=== PATIENT | female | born 1970 | race Caucasian/White ===

== ENCOUNTER 2016-08-07 19:04 | Observation (INO) | payer SELFPAY ==
[~2016-08-07] VITALS: Ht 177.8 cm; Wt 88.4 kg
[~2016-08-07 19:04] MED LIST: ONDA1TAB16 PO; SUMA25 PO; TRAM50 PO; VENTAER INH
[2016-08-07 19:05] VITALS: BP 126/77; PULSE 68; RESP 16; TEMP 98.2; O2SAT 98
--- NOTE | 2016-08-07 19:37 | PD ---
HPI Chief Complaint: Chest Pain Time Seen by Provider: 19:34 Travel History International Travel<30 days: No Contact w/Intl Traveler<30days: No Traveled to known affect area: No History of Present Illness HPI The patient is a 45-year-old female that complains of a squeezing type chest pain around the left lower breast for 3 days. The pain is constant and never completely goes away. She has some slight nausea but denies any diaphoresis or radiation of pain. She does have some shortness of breath. She states she has been under a lot of stress lately. She has never had a stress test. PFSH Past Medical History Hx Anticoagulant Therapy: No Asthma: Yes Cerebrovascular Accident: Yes (TIA) Migraines: Yes ?: Not Tubal Ligation: Yes Past Surgical History Hysterectomy: Yes Tonsillectomy: Yes Social History Alcohol Use: Yes (SOCIAL) Tobacco Use: No Substance Use: No Allergies-Medications (Allergen,Severity, Reaction): Coded Allergies: Morphine (Verified Allergy, Severe, Hives, 08/07/16) Penicillin (Verified Allergy, Severe, Hives, 08/07/16) Reported Meds & Prescriptions Reported Meds & Active Scripts Active Review of Systems Except as stated in HPI: all other systems reviewed are Neg Physical Exam Narrative GENERAL: The patient is alert, oriented 3 in slight apparent distress with her chest pain. Her vital signs are normal. SKIN: Focused skin assessment warm/dry. HEAD: Atraumatic. Normocephalic. EYES: Pupils equal and round. No scleral icterus. No injection or drainage. ENT: No nasal bleeding or discharge. Mucous membranes pink and moist. NECK: Trachea midline. No JVD. CARDIOVASCULAR: Regular rate and rhythm. No murmur appreciated. I can reproduce the patient's chest pain by pressing on the left lower ribs at one small area. RESPIRATORY: No accessory muscle use. Clear to auscultation. Breath sounds equal bilaterally. GASTROINTESTINAL: Abdomen soft, non-tender, nondistended. Hepatic and splenic margins not palpable. No guarding or rebound is present. MUSCULOSKELETAL: No obvious deformities. No clubbing. No cyanosis. No edema. NEUROLOGICAL: Awake and alert. No obvious cranial nerve deficits. Motor grossly within normal limits. Normal speech. PSYCHIATRIC: Appropriate mood and affect except that she does appear somewhat anxious; insight and judgment normal. Data Data Last Documented VS Vital Signs Date Time Temp Pulse Resp B/P Pulse Ox O2 Delivery O2 Flow Rate FiO2 08/07/16 19:52 70 16 129/82 99 Room Air 08/07/16 19:05 98.2 Orders Chest, Pa & Lat (08/07/16 19:37) Complete Blood Count With Diff (08/07/16 19:45) Comprehensive Metabolic Panel (08/07/16 19:45) Troponin I (08/07/16 19:45) Labs Laboratory Tests Test 08/07/16 19:10 White Blood Count 6.6 TH/MM3 Red Blood Count 5.03 MIL/MM3 Hemoglobin 13.8 GM/DL Hematocrit 39.6 % Mean Corpuscular Volume 78.7 FL Mean Corpuscular Hemoglobin 27.4 PG Mean Corpuscular Hemoglobin 34.8 % Concent Red Cell Distribution Width 12.5 % Platelet Count 180 TH/MM3 Mean Platelet Volume 8.5 FL Neutrophils (%) (Auto) 61.6 % Lymphocytes (%) (Auto) 31.2 % Monocytes (%) (Auto) 5.5 % Eosinophils (%) (Auto) 0.1 % Basophils (%) (Auto) 1.6 % Neutrophils # (Auto) 4.0 TH/MM3 Lymphocytes # (Auto) 2.1 TH/MM3 Monocytes # (Auto) 0.4 TH/MM3 Eosinophils # (Auto) 0.0 TH/MM3 Basophils # (Auto) 0.1 TH/MM3 CBC Comment DIFF FINAL Differential Comment Sodium Level 143 MEQ/L Potassium Level 3.7 MEQ/L Chloride Level 107 MEQ/L Carbon Dioxide Level 27.4 MEQ/L Anion Gap 9 MEQ/L Blood Urea Nitrogen 15 MG/DL Creatinine 1.00 MG/DL Estimat Glomerular Filtration 59 ML/MIN Rate Random Glucose 130 MG/DL Calcium Level 9.1 MG/DL Total Bilirubin 0.4 MG/DL Aspartate Amino Transf 20 U/L (AST/SGOT) Alanine Aminotransferase 24 U/L (ALT/SGPT) Alkaline Phosphatase 76 U/L Troponin I LESS THAN 0.02 NG/ML Total Protein 7.2 GM/DL Albumin 3.9 GM/DL MDM Medical Decision Making Medical Screen Exam Complete: Yes Emergency Medical Condition: Yes Medical Record Reviewed: Yes Interpretation(s) The CBC is normal. The complete metabolic profile shows a GFR 59, glucose of 1: 30 and troponin I but is otherwise normal. The troponin I is normal. The EKG shows Q waves in II, III, and F aVF consistent with an previous inferior myocardial infarction but is otherwise normal. It has a normal sinus rhythm with a rate of 66. Differential Diagnosis Chest wall pain, esophageal pain, gastrointestinal pain, acute coronary syndrome , pleuritic pain Narrative Course The patient has chest pain etiology undetermined. She has agreed to go into the chest pain center here at [place]. Physician Communication Physician Communication I discussed the patient with Dr. Richardson. Diagnosis Primary Impression: Chest pain of unknown etiology Admitting Information Admitting Physician Requests: Observation Foreign Austin MD Aug 07, 2016 19:37
[2016-08-07 19:52] VITALS: BP 129/82; PULSE 70; RESP 16; O2SAT 99
--- NOTE | 2016-08-07 19:58 | RADHPO ---
EXAM DATE/TIME: 08/07/2016 19:40 [facility] COMPARISON: No previous studies available for comparison. INDICATIONS : Left side chest pain for three days. MEDICAL HISTORY : None. SURGICAL HISTORY : None. ENCOUNTER: Initial ACUITY: 3 days PAIN SCORE: 8/10 LOCATION: Left chest FINDINGS: PA and lateral views of the chest demonstrate the lungs to be symmetrically aerated without evidence of mass, infiltrate or effusion. The cardiomediastinal contours are unremarkable. Osseous structure s are intact. CONCLUSION: No evidence of acute cardiopulmonary disease. Jaciel Justice MD on August 07, 2016 at 19:55 Board Certified Radiologist. This report was verified electronically.
[2016-08-07 20:00] LABS: BASOPHIL # 0.1 TH/MM3 (0-0.2); BASOPHIL % 1.6 % (0.0-2.0); EOSINOPHIL % 0.1 % (0.0-4.0); HEMATOCRIT 39.6 % (35.0-46.0); HEMO FLAGS DIFF FINAL; LYMPH % 31.2 % (9.0-44.0); LYMPHOCYTE # 2.1 TH/MM3 (1.0-4.8); MEAN CELL VOLUME 78.7 FL (80.0-100.0); MEAN CORPUSCULAR HEMOGLOBIN 27.4 PG (27.0-34.0); MEAN CORPUSCULAR HGB CONC 34.8 % (32.0-36.0); MONO % 5.5 % (0.0-8.0); NEUT % 61.6 % (16.0-70.0); PLATELET COUNT 180 TH/MM3 (150-450); RED BLOOD COUNT 5.03 MIL/MM3 (4.00-5.30); RED CELL DISTRIBUTION WIDTH 12.5 % (11.6-17.2); WHITE BLOOD COUNT 6.6 TH/MM3 (4.0-11.0)
[2016-08-07 20:06] LABS: CHLORIDE 107 MEQ/L (98-107); POTASSIUM 3.7 MEQ/L (3.5-5.1); SODIUM (NA) 143 MEQ/L (136-145)
[2016-08-07 20:10] LABS: ANION GAP 9 MEQ/L (5-15); BICARBONATE 27.4 MEQ/L (21.0-32.0); BLOOD UREA NITROGEN 15 MG/DL (7-18)
[2016-08-07 20:13] LABS: ALT (GPT) 24 U/L (10-53); AST (GOT) 20 U/L (15-37); GLOMERULAR FILTRATION RATE 59 ML/MIN (>89)
[2016-08-07 20:15] LABS: TOTAL BILIRUBIN ADULT 0.4 MG/DL (0.2-1.0)
[2016-08-07 20:16] LABS: ALKALINE PHOSPHATASE 76 U/L (45-117)
[2016-08-07] MEDS ORDERED: TEMAZEPAM 15 MG CAP PO PRN (21:15)
[2016-08-07] MEDS ORDERED: KETOROLAC TROMETHAMINE 60 MG/2 ML (IM) VIAL IVP ONE (21:15)
[2016-08-07] MEDS ORDERED: ACETAMINOPHEN 500 MG CPLT PO PRN (21:15)
[2016-08-07] MEDS ORDERED: ASPIRIN 81 MG CHEW TAB PO ONE (21:15)
[2016-08-07] MEDS ORDERED: SODIUM CHLORIDE 0.9% FLUSH 10 ML FLUSH IV FLUSH PRN (21:15)
[2016-08-07 21:40] VITALS: BP 128/78; PULSE 70; RESP 16; O2SAT 99
[2016-08-07 22:09] LABS: CREATINE KINASE 118 U/L (26-192)
[2016-08-07 22:26] LABS: CKMB 1.9 NG/ML (0.5-3.6)
[2016-08-07 23:15] VITALS: BP 136/71; PULSE 65; RESP 18; TEMP 96.8; O2SAT 99
[2016-08-08 00:26] VITALS: PULSE 68
[2016-08-08 00:56] LABS: CREATINE KINASE 95 U/L (26-192)
[2016-08-08 01:00] VITALS: O2SAT 99
[2016-08-08 04:19] VITALS: BP 119/67; PULSE 62; RESP 16; TEMP 98.2; O2SAT 98
[2016-08-08 08:00] VITALS: BP 118/73; PULSE 58; RESP 20; TEMP 96.6; O2SAT 97
[2016-08-08 08:23] VITALS: O2SAT 98
[2016-08-08 08:43] LABS: CREATINE KINASE 87 U/L (26-192)
--- NOTE | 2016-08-08 08:52 | HHI.HP ---
[facility] Primary [facility] Physician No Primary Care Physician Admission Diagnosis chest pain of unknown etiology Diagnoses: (1) Chest pain Diagnosis: Principal Chief Complaint: chest pain Travel History International Travel<30 Days: No Contact w/Intl Traveler <30 Da: No Traveled to Known Affected Are: No History of Present Illness Written by Martha Ambriz PA-C acting as scribe for Dr. Martines on 08/08/16 at ~0840. 45-year-old female with history of asthma and migraines presents with complaint of chest pain. Admitted to chest pain center. Patient states this is day 4 of chest pain. She points to the area just left of the lower sternum under the breast as the site of pain stating it radiates to the immediate area and to the back, but denies any radiation to jaws or arms. She states it is "squeezing really hard". States pain has been constant but will ease up and worsen at times. She states yesterday it worsened. She states 2 days ago she felt like her heart was pounding and racing which lasted one hour. States her pain is a 5/10 currently. Admits to some relief with Toradol she received in ED. Patient does have migraines, arthritis, and carpal tunnel syndrome and takes ibuprofen [id number]. She states she takes 800-1000 mg a couple of times a day when she has her migraines but otherwise will take 3-6 ibuprofen on another days for the arthritis. She denies any vomiting, hematochezia, or melena. She states a cough and shortness of breath started yesterday. Admits to headaches but states this is her norm. She denies any fevers or chills, diaphoresis, night sweats. She denies any dysuria, diarrhea, or constipation. Patient does not have a primary care physician. Denies history of hypertension or hyperlipidemia. 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 Review of Systems Except as stated in HPI: all other systems reviewed are Neg Past Family Social History Past Medical History Well-controlled asthma Migraines Past Surgical History Tubal ligation Hysterectomy next and tonsillectomy Removal of R sided redundant ureter as a child Reported Medications Ibuprofen OTC Allergies: Coded Allergies: Morphine (Verified Allergy, Severe, Hives, 08/07/16) Penicillin (Verified Allergy, Severe, Hives, 08/07/16) Family History + Family history of diabetes. Denies mother having heart disease. She does not know her father. States maternal grandfather had 3 MIs and CHF. Half-brother has no history of heart problems. 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 Drinks alcohol 1-2 times per month. Denies any history of cigarette smoking. Denies any history of illicit drug use including IVDA. Physical Exam Vital Signs Vital Signs Date Time Temp Pulse Resp B/P Pulse Ox O2 Delivery O2 Flow Rate FiO2 08/08/16 08:23 98 21 08/08/16 04:19 98.2 62 16 119/67 98 08/08/16 01:00 99 21 08/08/16 00:26 68 08/07/16 23:15 96.8 65 18 136/71 99 08/07/16 21:40 70 16 128/78 99 Room Air 08/07/16 19:52 70 16 129/82 99 Room Air 08/07/16 19:19 68 16 98 Room Air 08/07/16 19:05 98.2 68 16 126/77 98 Physical Exam GENERAL: This is a pleasant well-nourished, well-developed patient, in no apparent distress. SKIN: No rashes, ecchymoses or lesions. Warm and dry. HEAD: Atraumatic. Normocephalic. EYES: No scleral icterus. No injection or drainage. ENT: Uvula midline. Airway patent. CHEST: Reproducible tenderness over the left lower sternal border and under the left breast in this area. CARDIOVASCULAR: Regular rate and rhythm without murmurs, gallops, or rubs. RESPIRATORY: Clear to auscultation. Breath sounds equal bilaterally. No wheezes , rales, or rhonchi. GASTROINTESTINAL: Abdomen soft, non-tender, nondistended. No guarding. MUSCULOSKELETAL: No lower extremity edema bilaterally. NEUROLOGICAL: Awake and alert. Motor grossly within normal limits. Normal speech. Laboratory Laboratory Tests Test 08/07/16 08/07/16 08/08/16 08/08/16 19:10 21:30 00:05 08:08 White Blood Count 6.6 Red Blood Count 5.03 Hemoglobin 13.8 Hematocrit 39.6 Mean Corpuscular Volume 78.7 Mean Corpuscular Hemoglobin 27.4 Mean Corpuscular Hemoglobin 34.8 Concent Red Cell Distribution Width 12.5 Platelet Count 180 Mean Platelet Volume 8.5 Neutrophils (%) (Auto) 61.6 Lymphocytes (%) (Auto) 31.2 Monocytes (%) (Auto) 5.5 Eosinophils (%) (Auto) 0.1 Basophils (%) (Auto) 1.6 Neutrophils # (Auto) 4.0 Lymphocytes # (Auto) 2.1 Monocytes # (Auto) 0.4 Eosinophils # (Auto) 0.0 Basophils # (Auto) 0.1 CBC Comment DIFF FINAL Differential Comment Sodium Level 143 Potassium Level 3.7 Chloride Level 107 Carbon Dioxide Level 27.4 Anion Gap 9 Blood Urea Nitrogen 15 Creatinine 1.00 Estimat Glomerular Filtration 59 Rate Random Glucose 130 Calcium Level 9.1 Total Bilirubin 0.4 Aspartate Amino Transf 20 (AST/SGOT) Alanine Aminotransferase 24 (ALT/SGPT) Alkaline Phosphatase 76 Troponin I LESS THAN 0.02 LESS THAN 0.02 LESS THAN 0.02 Total Protein 7.2 Albumin 3.9 Total Creatine Kinase 118 95 87 Creatine Kinase MB 1.9 Result Diagram: 08/07/16190908/07/161909 Imaging Last Impressions Chest X-Ray 08/07/161936 Signed Impressions: Service Date/Time: Sunday, August 07, 2016 19:40 - CONCLUSION: No evidence of acute cardiopulmonary disease. Jaciel Justice MD Assessment and Plan Assessment and Plan 45-year-old female with: Chest pain: Squeezing over the left side of chest. Patient does have reproducible tenderness over the left lower sternal border and under the left breast. She additionally uses heavy ibuprofen for migraines and arthritis which could be contributing to chest pain. EKGs 3 personally interpreted with normal sinus rhythm and no evidence of ischemia. Chest x-ray with no acute disease. Labs relatively unremarkable; troponin 3 less than 0.02. Vitals good. -Give one dose of sublingual nitroglycerin now as patient has continued chest pain did not receive this in the ED; Nitro SL prn -Patient received 162 mg of aspirin in the ED last night. Will avoid further aspirin this morning as patient uses heavy NSAIDs and may already have some gastric irritation -One dose of Maalox now. -Start Protonix 40 mg by mouth daily -Telemetry -Perform Lexiscan due to continued chest pain and use of nitroglycerin DVT prevention: SCDs. This note was transcribed by haile KERR I, Dr. Eladio Martines personally performed the history, physical exam, and medical decision making; and confirmed the accuracy of the information in the transcribed note. Authenticated by Dr. Eladio Martines on 08/08/16 at 09:43. Martha Ambriz Aug 08, 2016 08:52 Eladio Martines MD Aug 08, 2016 09:43
[2016-08-08] MEDS ORDERED: SODIUM CHLORIDE 0.9% FLUSH 10 ML FLUSH SCH (09:00)
[2016-08-08] MEDS ORDERED: NITROGLYCERIN 0.4 MG SL 25 TABS/BTL SL PRN (09:00)
[2016-08-08] MEDS ORDERED: NITROGLYCERIN 0.4 MG SL 25 TABS/BTL SL ONE (09:00)
[2016-08-08] MEDS ORDERED: PANTOPRAZOLE SOD 40 MG DELAYED RELEASE TAB PO SCH (10:00)
[2016-08-08] MEDS ORDERED: ALUMINUM/MAGNESIUM/SIMETH 30 ML CUP PO ONE (11:00)
[2016-08-08 12:00] VITALS: BP 102/58; PULSE 55; RESP 20; TEMP 97.6; O2SAT 98
--- NOTE | 2016-08-08 12:12 | EKG ---
Date Performed: 08/08/2016 Time Performed: 01:09:37 PTAGE: 45 years EKG: Sinus rhythm POSSIBLE LATERAL MYOCARDIAL INFARCTION PROBABLE INFERIOR MYOCARDIAL INFARCTION ABNORMAL ECG PREVIOUS TRACING : 08/07/2016 21.55 Compared to prior tracing no significant change DOCTOR: Da Marie Interpretating Date/Time 08/08/2016 12:10:50
--- NOTE | 2016-08-08 12:15 | EKG ---
Date Performed: 08/07/2016 Time Performed: 21:55:50 PTAGE: 45 years EKG: Sinus rhythm PROBABLE INFERIOR MYOCARDIAL INFARCTION ABNORMAL ECG PREVIOUS TRACING : 08/07/2016 19.14 Compared to prior tracing no significant change DOCTOR: Da Marie Interpretating Date/Time 08/08/2016 12:12:12
--- NOTE | 2016-08-08 12:20 | EKG ---
Date Performed: 08/07/2016 Time Performed: 19:14:13 PTAGE: 45 years EKG: Sinus rhythm POSSIBLE INFERIOR MYOCARDIAL INFARCTION ABNORMAL ECG NO PREVIOUS TRACING DOCTOR: Da Marie Interpretating Date/Time 08/08/2016 12:17:58
[2016-08-08] MEDS ORDERED: REGADENOSON INJ 0.4 MG/5 ML SYR IV ONE (12:25)
--- NOTE | 2016-08-08 13:38 | RADHPO ---
EXAM DATE/TIME: 08/08/2016 12:29 [facility] COMPARISON: No previous studies available for comparison. INDICATIONS : Left sided chest pain radiating to back with dyspnea. Angina. DOSE: 25.4 mCi Tc99m Myoview at stress. 8.5 mCi Tc99m Myoview at rest. 0.4 mg Lexiscan STRESS SYMPTOMS: Nausea, chest pressure, dyspnea, tired, facial flush and stomach cramps. EJECTION FRACTION: 65% MEDICAL HISTORY : Asthma. SURGICAL HISTORY : Tubal ligation. ENCOUNTER: Initial ACUITY: 1 day PAIN SCALE: 5/10 LOCATION: Left chest TECHNIQUE: The patient underwent pharmacologic stress with infusion of prescribed dose. Continuous ECG tracing was monitored during stress. Gated SPECT imaging was performed after stress and conventional SPECT i maging was performed at rest. The examination was performed on a SPECT/CT scanner, both attenuation and non-corrected datasets were reviewed. FINDINGS: DISTRIBUTION: The maximum perfused segment at stress is in the septal wall. PERFUSION STUDY: The pattern of perfusion at stress is within normal limits. GATED STUDY: There is intact wall motion and thickening without hypokinetic or dyskinetic segments. CONCLUSION: 1. No definite reversibility to suggest ischemia. There is some gastric activity which does obscure t he data somewhat. 2. Normal wall motion with ejection fraction 65% RISK CATEGORY: Low (<1% Annual Mortality Rate) Jevon Costa MD on August 08, 2016 at 13:29 Board Certified Radiologist. This report was verified electronically.
[2016-08-08] MEDS ORDERED: PROT40TA PO (14:03)
--- NOTE | 2016-08-08 14:03 | HHI.DCPOC ---
Discharge Care Plan Diagnosis: (1) Chest pain Goals to Promote Your Health * To prevent worsening of your condition and complications * To maintain your health at the optimal level Directions to Meet Your Goals Take your medications as prescribed Follow your dietary instruction Follow activity as directed Keep your appointments as scheduled Take your immunizations and boosters as scheduled If your symptoms worsen call your PCP, if no PCP go to Urgent Care Center or Emergency Room Smoking is Dangerous to Your Health. Avoid second hand smoke Call the 24-hour hour crisis hotline for domestic abuse at Martha Ambriz Aug 08, 2016 14:03
--- NOTE | 2016-08-08 14:30 | TR ---
Date Performed: 08/08/2016 Time Performed: 12:47:53 DOCTOR: Beto Downs DRUG LIST: CLINICAL HISTORY: CHEST PAIN REASON FOR TEST: Chest pain REASON FOR ENDING: OBSERVATION: CONCLUSION: Lexiscan stress test was performed under standard four minute protocol. Radionuclide was injected one minute prior to ending the test. Developed chest pressure, dyspnea, tiredness, flus mark of the face, nausea and stomach cramping. No electrocardiographic abnormalities were present to suggest ischemia. Recovery was quick and uneventful with resolution of symptoms. Nuclear imaging and interpretation are pending. COMMENTS:
[2016-08-17] MEDS ORDERED: VIST50CA PO (11:34)
== END 2016-08-08 15:44 | disposition home or self-care (01) ==
LOC: PHED 19:04 → PHEDA 21:03 → UNDOADMOB 21:03 → PHEDA 22:35 → PH3B 22:35 → UNDODISOB 08-08 15:44
PROVIDERS: ADMIT Family Medicine; ATTEND Family Medicine
DX: R07.9 Chest pain, unspecified (principal); R11.0 Nausea; J45.909 Unspecified asthma, uncomplicated; G43.909 Migraine, unspecified, not intractable, without status migrainosus; Z86.73 Personal history of transient ischemic attack (TIA), and cerebral infarction without residual deficits
CPT/HCPCS: 71020; 78452; 80053; 82550; 82552; 84484; 85025; 93005; 93017; 99285; A9502; G0378; J1885; J2785

== ENCOUNTER 2016-09-17 09:58 | Emergency (ER) | payer SELFPAY ==
[~2016-09-17 09:58] MED LIST changes: -ONDA1TAB16 PO; +PROT40TA PO; -SUMA25 PO; -TRAM50 PO; -VENTAER INH; +VIST50CA PO
[2016-09-17 10:06] VITALS: BP 134/62; PULSE 70; RESP 20; TEMP 98.8; O2SAT 98
--- NOTE | 2016-09-17 10:58 | PD ---
HPI Chief Complaint: Eye Problems/Injury Time Seen by Provider: 10:42 Travel History International Travel<30 days: No Contact w/Intl Traveler<30days: No Traveled to known affect area: No History of Present Illness HPI This patient complains of irritation to her left eye. Her boss sent here because she they were concerned she had pinkeye. No injury to the eye. She does not work contact lenses. Duration 3 days PFSH Past Medical History Hx Anticoagulant Therapy: No Arthritis: Yes Asthma: Yes (use to hasve an inhaler) Autoimmune Disease: No Anxiety: Yes (stress levels) Depression: Yes Cancer: Yes (cervical cancer) Cardiovascular Problems: Yes Chest Pain: Yes COPD: No Cerebrovascular Accident: Yes (possible mini stroke ) Endocrine: No Gastrointestinal Disorders: No Genitourinary: Yes (see above on surgeries) Hypertension: No Musculoskeletal: Yes (SCIATICA) Neurologic: Yes Psychiatric: Yes Reproductive: Yes (see above) Respiratory: Yes Migraines: Yes (since age 8) Seizures: No Tetanus Vaccination: < 5 Years Influenza Vaccination: No ?: Not Tubal Ligation: Yes Past Surgical History Cardiac Surgery: No Ear Surgery: No Endocrine Surgery: No Eye Surgery: No Genitourinary Surgery: Yes (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) Gynecologic Surgery: Yes (cervical CA radical hysterectomy) Hysterectomy: Yes Neurologic Surgery: No Oral Surgery: No Tonsillectomy: Yes Social History Alcohol Use: Yes (SOCIAL) Tobacco Use: No Substance Use: No Allergies-Medications (Allergen,Severity, Reaction): Coded Allergies: Morphine (Verified Allergy, Severe, Hives, 09/17/16) Penicillin (Verified Allergy, Severe, Hives, 09/17/16) Reported Meds & Prescriptions Reported Meds & Active Scripts Active Review of Systems General / Constitutional: No: Fever HENT: No: Headaches Cardiovascular: No: Chest Pain or Discomfort Physical Exam Narrative NECK: Symmetrical appearance, midline trachea. No mass or crepitus. Thyroid without enlargement, tenderness, or mass. SKIN: Focused skin assessment reveals no rash or ulcers. Skin is warm and dry. Palpation shows no induration or nodules. Right sclerae clear Left sclera shows some injection over the bottom half but not the top No drainage If I pull her lower eyelid down I can see a stye-like finding on the inside of her left lower lid That is where she has discomfort and irritation Data Data Last Documented VS Vital Signs Date Time Temp Pulse Resp B/P Pulse Ox O2 Delivery O2 Flow Rate FiO2 09/17/16 10:06 98.8 70 20 134/62 98 MDM Medical Decision Making Medical Screen Exam Complete: Yes Emergency Medical Condition: Yes Medical Record Reviewed: Yes Differential Diagnosis Stye, conjunctivitis, abrasion Narrative Course I have reviewed the patient's electronic medical record. This patient has a stye on the left lower eyelid Supportive care discussed Recommend Advil and warm compresses I don't see any indication for antibiotics. There is no conjunctivitis Diagnosis Primary Impression: Stye external Qualified Code: H00.015 - Hordeolum externum of left lower eyelid Referrals: Family Practice Physician as needed Patient Instructions: General Instructions Departure Forms: Work Release, Enter return to work date: Sep 17, 2016 Tests/Procedures Med/Other Pt SpecificInfo: Other Disposition: 01 DISCHARGE HOME Condition: Stable Eladio Tom MD Sep 17, 2016 10:58
== END 2016-09-17 11:06 | disposition home or self-care (01) ==
LOC: PHED 09:58
DX: H00.015 Hordeolum externum left lower eyelid (principal); Z87.39 Personal history of other diseases of the musculoskeletal system and connective tissue; Z87.09 Personal history of other diseases of the respiratory system; Z86.59 Personal history of other mental and behavioral disorders; Z86.79 Personal history of other diseases of the circulatory system; Z87.448 Personal history of other diseases of urinary system; Z86.69 Personal history of other diseases of the nervous system and sense organs; Z85.41 Personal history of malignant neoplasm of cervix uteri
CPT/HCPCS: 99282